=== PATIENT | female | born 1945 | race Caucasian/White ===

== ENCOUNTER → 2017-04-02 | Outpatient (CLI) | payer MEDICARE, OTHER | END | disposition home or self-care (01) | LOC: GMAM 17:59 | PROVIDERS: ATTEND Family Medicine | DX: R22.9 Localized swelling, mass and lump, unspecified (principal); R50.9 Fever, unspecified ==

== ENCOUNTER → 2017-04-09 | Outpatient (CLI) | payer MEDICARE, OTHER ==
--- NOTE | 2017-04-10 13:42 | US ---
EXAM DESCRIPTION: Thyroid: Ultrasound. CLINICAL HISTORY: NODULE. No palpable mass. No prior surgery. No thyroid therapy. COMPARISON: None. TECHNIQUE: Transcutaneous scannin-dimensional and Doppler modes. Largest nodule(s) bilaterally will have point score for TI-RADS. FINDINGS: Right lobe dimensions 5.2 x 1.8 x 1.3 cm. Heterogeneous echoes. 4.3 x 2.2 x 1.9 mm nodule in the mid lobe. Well-defined saldana, spongiform with posterior enhancement, parallel ((wider than tall), and no echogenic foci and hypoechoic. Decreased vascularity in the remainder of the lobe. No echogenic foci. Contour right lobe smooth. Juxta-thyroid masses/fluid: none. Left lobe dimensions 4.9 x 1.6 x 1.1 cm. Heterogeneous echoes. 8.2 x 5.6 x 5.6 mm nodule in the lower pole. Mostly solid, hypoechoic, smooth margins, parallel, with 1.5 mm echogenic foci and posterior shadowing. Not vascular. Decreased Vascularity in the remainder of the lobe. No other echogenic foci. Contour left lobe smooth. Juxta-thyroid masses/fluid: none. Isthmus thickness 1.8 mm. Heterogeneous echoes. No cystic, no solid, and no complex lesions. Decreased vascularity. Contour smooth. IMPRESSION: 1. 8.2 mm mostly solid nodule in the lower left lobe, hypoechoic with single macrocalcification. ACR BI-RADS point total 5. ACR BI-RADS grade TR 4-moderately suspicious. No tissue sampling at this time. Follow-up thyroid ultrasound in one year interval. 2. 4.3 mm hypoechoic nodule in the right lobe with spongiform composition. ACR BI-RADS point total 2. ACR BI-RADS grade TR 2-not suspicious. No tissue sampling or follow-up imaging is recommended. Please see ACR TI RADS recommendations below.* 3. No discrete solid masses, cystic masses, or edema in the surrounding soft tissues. *ACR TI-RADS recommendations: TR5 (greater than or equal to 7 points) - FNA if greater than or equal to 1 cm, follow-up if 0.5 - 0.9 cm every year for 5 years TR4 (4-6 points) - FNA if greater than or equal to 1.5 cm, follow-up if 1 - 1.4 cm in 1, 2, 3 and 5 years TR3 (3 points) - FNA if greater than or equal to 2.5 cm, follow -up if 1.5 - 2.4 cm in 1, 3 and 5 years TR2 (2 points) and TR1 (0 points) - No FNA or follow-up * ACR TI-RADS recommends that no more than two nodules with the highest ACR TI-RADS total point should be biopsied and no more than four nodules should be followed. White Paper of the ACR TI-RADS Committee, JACR, 2017. Electronically signed by: Simon David MD 04/10/2017 1:41 PM [facility]
== END | disposition home or self-care (01) ==
LOC: US 09:00
PROVIDERS: ATTEND Family Medicine
DX: R22.9 Localized swelling, mass and lump, unspecified (principal)

== ENCOUNTER → 2017-04-23 | Outpatient (CLI) | payer MEDICARE, OTHER | LOC: GMAM 17:40 | PROVIDERS: ATTEND Family Medicine | DX: R82.5 Elevated urine levels of drugs, medicaments and biological substances (principal); R82.99 Other abnormal findings in urine ==

== ENCOUNTER → 2017-05-08 | Outpatient (CLI) | payer MEDICARE, OTHER | LOC: GMAM 19:09 | PROVIDERS: ATTEND Family Medicine | DX: D64.9 Anemia, unspecified (principal) ==

== ENCOUNTER → 2017-09-09 | Outpatient (CLI) | payer MEDICARE, OTHER ==
--- NOTE | 2017-09-09 11:56 | CT ---
EXAM DESCRIPTION: Abdomen/Pelvis w/Contrast: Computed Tomography. CLINICAL HISTORY: Malignant neoplasm of cecum COMPARISON: CT scan of the chest on the same visit. CT scan of abdomen and pelvis without contrast 04/12/2012. TECHNIQUE: Spiral-axial scans at 5.0 mm intervals through the abdomen and pelvis, after nonionic IV contrast and water-soluble oral contrast. Coronal and sagittal 2.0 mm reconstructions. Delayed scans, liver through the pelvis. Axial-spiral 5mm. No adverse reactions. Total Exam DLP: 1163.48 mGy-cm. This exam was performed according to our departmental dose-optimization program which includes automated exposure control, adjustment of the mA and/or kV according to patient size and/or use of iterative reconstruction technique; to reduce radiation dose to as low as reasonably achievable (ALARA). FINDINGS: Lung bases and pleura: 5 mm soft tissue nodule abutting the posterior pleura of the right lower lobe without calcification. This segment of the right posterior pleura was not imaged on the prior study on the prior study. No infiltrate in the bases and no pleural effusion. Coronary artery stents and/or calcifications. Liver, Stomach, Spleen, Adrenal Glands: Oral contrast in the stomach. Solid organs are unremarkable. Pancreas, Gallbladder, Ducts: Surgical clips in the gallbladder fossa. No fluid. Common bile duct dilation. Most likely related to postcholecystectomy. Pancreas negative. Kidneys and Ureters: 1.9 cm cystlike mass in the upper pole of the right kidney with Hounsfield density +12-+20. Left breast and ureters are unremarkable.. Mesentery: An oval-shaped mass with questionable peripheral enhancement and central density in approximately +30 is abutting the distal sigmoid and a loop of small bowel with minimal irregularity of the margins and density in the adjacent fat. Dimensions are 2.2 x 2.0 x 1.3 cm. On series 2, images 67-71. 2 similar appearing masses measuring approximately 1 cm in diameter and slightly lobulated borders are at approximately the same level of the pelvis but more in the midline and can be seen between loops of small bowel and sigmoid colon (images 69-71 in the left lateral pelvis. Elongated soft tissue mass with lobulated borders measuring 3 cm in the left pelvis in the region of the left iliac mckenzie chains on images 67 and 68. Larger nodes more inferior also approximately 3 cm in length on images 74-76. This could also represent fluid with Hounsfield density +18. A lobulated, non-enhancing mass which may be continuous with, or contiguous to, the enhancing right lateral rectal wall on images 76-78 measures 2.2 x 1.8 x 2.3 cm with Hounsfield density +29-+32. Aorta: Moderate atherosclerotic calcification with circumferential calcium distal segment and narrowing of the lumen extending into the bilateral proximal common iliac vessels. Small periaortic nodes. No major calcification of the major branch vessels from the aorta. No aneurysm. Small Bowel: Contains oral contrast. No distention or air-fluid levels. Terminal Ileum/Cecum: Normal caliber of the TI which contains oral contrast. Cyst around the sacrum and minimal fascial thickening and fatty stranding. Appendix not seen. No fluid collections. No prominent cecal mass. Abutting the right lower lobe. Colon: Oral contrast in the proximal ascending colon with distention of the transverse colon descending colon, and sigmoid and proximal rectum by fecal material. Moderate redundancy of the sigmoid colon. Pelvic Organs: Moderate fluid in the cul-de-sac. Prostate gland abutting the urinary bladder and seminal vesicles. Spine and Bony Pelvis: Advanced spondylosis L4-5 and trace retrolisthesis with canal and significant foraminal narrowing. Also spondylosis at T12-L1. Decreased bone density. Lumbar levoscoliosis. Degenerative changes with hypertrophy of the bilateral acetabular margins. No sclerotic or destructive bone lesions. Abdominal Wall/Back Soft Tissues: Minimal diastases at the umbilicus but no mariluz hernia involving bowel. IMPRESSION: 1. Soft tissue masses in the pelvis the largest abutting the small bowel and sigmoid colon and most likely associated with the right iliac lymph node chain. This mass is 2.2 cm greatest diameter. These could represent metastases from the primary cecal malignancy. The other masses are in the mid pelvis in the left iliac lymph node chain. No obvious mass in the cecum with postsurgical changes. 2 cm mass may be contiguous or continuous with the right rectal wall, representing a metastasis or a second primary. 2. Probable cyst upper pole right kidney. Correlate with renal ultrasound. 3. Posterior soft tissue pleural-based nodule. Please see chest CT scan report. 4. Moderate fluid in the pelvis cul-de-sac. 5. Spondylosis lumbar spine. Electronically signed by: Simon David MD 09/09/2017 11:55 AM CDT
--- NOTE | 2017-09-09 12:13 | CT ---
EXAM DESCRIPTION: Chest w/Contrast : Computed Tomography. CLINICAL HISTORY: Malignant neoplasm of cecum COMPARISON: CT scan of abdomen and pelvis with IV and oral contrast on this visit. TECHNIQUE: Spiral-axial scans at 5.0 mm intervals through the lungs and thorax with IV contrast. 2.5 mm lung algorithm axial reconstructions. Coronal and sagittal 2.0 Mm reconstructions. No adverse reactions. Total Exam DLP: 254 mGy-cm. This exam was performed according to our departmental dose-optimization program which includes automated exposure control, adjustment of the mA and/or kV according to patient size and/or use of iterative reconstruction technique; to reduce radiation dose to as low as reasonably achievable (ALARA). FINDINGS: 6 mm soft tissue nodule, posterior pleura abutting the superior segment of the right lower lobe and a posterior rib with no calcification or rib destruction, (series 5, image 76). No subpleural parenchymal nodules in the right lower lobe. No parenchymal nodules and other lobes and segments. Possible focal small 3 mm scar posterior left lobe apex (image 23). Bilateral apical pleural thickening with no effusion or pneumothorax. Calcification in the inferior left thyroid lobe; the entire thyroid is not imaged. No enlarged lymph nodes or soft tissue masses in the mediastinum hilum or axilla. Coronary artery stents. Atherosclerotic calcifications in the brachiocephalic vessels and thoracic aorta. Spondylosis at several levels of the thoracic spine. No sclerotic or destructive bone lesions. Mild pectus excavatum of the body of the sternum. IMPRESSION: 1. Single soft tissue nodule appears to be pleural-based abutting the superior segment of the right lower lobe 6 mm diameter. 3 mm focal nodule or scar in the left upper lobe. Consider follow-up chest CT scan with IV contrast in 6 -12 month interval, according to [employer] Best Practice guidelines. Please see below*. 2. Remainder of the lungs unremarkable. No soft tissue mass in the mediastinum or quincy. Atherosclerotic changes in the aorta. Coronary artery stents. * 2017 Fleischner Society Recommendations for Single Solid Lung Nodule Follow-Up based on size (average of long- and short-axis diameters) <6 mm Low-Risk Patient: No routine follow-up <6 mm High-Risk Patient: Optional CT at 12 months 6-8 mm Low-Risk Patient: CT at 6-[address] at 18-24 months 6-8 mm High-Risk Patient: CT at 6-[address] at 18-24 months >8 mm Low-Risk Patient: Consider CT, PET/CT or tissue sampling at 3 months >8 mm High-Risk Patient: Same as for low-risk patient Electronically signed by: Simon David MD 09/09/2017 12:12 PM CDT
== END ==
LOC: CT 08:00
PROVIDERS: ATTEND Internal Medicine Hematology & Oncology
DX: C18.0 Malignant neoplasm of cecum (principal); R91.1 Solitary pulmonary nodule; R18.8 Other ascites; M48.061 Spinal stenosis, lumbar region without neurogenic claudication

== ENCOUNTER → 2017-10-22 | Outpatient (CLI) | payer MEDICARE, OTHER | LOC: GMAM 15:26 | PROVIDERS: ATTEND Family Medicine | DX: C18.9 Malignant neoplasm of colon, unspecified (principal) ==

== ENCOUNTER → 2018-11-02 | Outpatient (CLI) | payer MEDICARE, OTHER | LOC: BFHOS 16:25 | PROVIDERS: ATTEND Family Medicine | DX: R30.0 Dysuria (principal) ==

== ENCOUNTER → 2018-11-03 | Outpatient (CLI) | payer OTHER ==
--- NOTE | 2018-11-03 10:06 | OP ---
DATE OF PROCEDURE: 11/03/18 PREOPERATIVE DIAGNOSIS: 1. Metastatic carcinoma of the colon with malignant ascites. POSTOPERATIVE DIAGNOSIS: 1. Metastatic carcinoma of the colon with malignant ascites. PROCEDURE: 1. Sonographically guided paracentesis. SURGEON: Arturo Schulte MD. RATING EXAMINER: None. ANESTHESIA: Local infiltration of 1% lidocaine. INDICATION: The patient is a 72-year-old female with metastatic carcinoma of the colon with malignant ascites. She is short of breath, quite uncomfortable. She is currently on hospice. She was brought to the Ultrasound Suite today for sonographically guided paracentesis. FINDINGS: The ultrasound films show the needle and then the catheter in the fluid collection in the right lower quadrant. 5700 mL of bloody ascites was obtained. The patient was much more comfortable at the end of the procedure. PROCEDURE: The patient was placed in the supine position with the head of the bed slightly elevated. The abdomen was inspected with the ultrasound probe and the right lower quadrant pool was identified. The abdomen superior to the probe was prepped with chlorhexidine prep. Local infiltration of anesthesia was obtained with 1% lidocaine after drapes were placed. At this point, the 22- gauge needle was introduced into the fluid collection and fluid was obtained under sonographic guidance. A stab wound was then made with an 11 blade and the paracentesis catheter and needle were introduced under sonographic guidance into the pool. Fluid was obtained. The catheter was advanced and the needle withdrawn. It was then connected to the three-way stopcock and a total of 180 mL was withdrawn. It was then connected to the suction canisters and remaining fluid was removed. When it was emptied, the catheter was removed. Pressure was held. A sterile band-aid was applied. Re-inspection revealed a significant decrease in the fluid. The patient tolerated the procedure well and was discharged home. Estimated blood loss less than 5 mL. All sponge, needle and instrument counts were correct. [facility][id number] [facility]
--- NOTE | 2018-11-04 08:20 | US ---
EXAM DESCRIPTION: Paracentesis: Ultrasound CLINICAL HISTORY: MALIGNANT ASCITES COMPARISON: CT abdomen and pelvis 09/09/2017. TECHNIQUE: The procedure was performed by Dr. Schulte. Sterile preparation and technique. Ultrasound-guided placement of catheter into the peritoneal cavity for drainage of ascites. No immediate complications. FINDINGS: Ascites seen in all 4 quadrants of the abdomen. Significant increase in fluid since the prior CT scan. 5700 mL of bloody fluid was removed. IMPRESSION: Successful, ultrasound-guided paracentesis. Electronically signed by: Simon David MD 11/04/2018 8:18 AM CDT
== END ==
LOC: US 11:21
PROVIDERS: ATTEND Surgery
DX: C18.9 Malignant neoplasm of colon, unspecified (principal); C79.9 Secondary malignant neoplasm of unspecified site; R18.0 Malignant ascites

== ENCOUNTER 2018-11-11 17:33 | Inpatient (IN) | payer OTHER ==
--- NOTE | 2018-11-11 17:35 | HP ---
SUPERVISING PHYSICIAN: Wayne Cheung MD CHIEF COMPLAINT: Endstage colon cancer, uncontrollable nausea and vomiting. HISTORY OF PRESENT ILLNESS: Ms. 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 She is on home hospice with [facility]. She had been doing okay, but in the last several days, has been unable to hold any oral medications for nausea and vomiting and had persistent nausea and was unable to get any comfort. Dr. Cheung requested the patient be admitted for inpatient hospice to allow for IV medications to control her nausea. The patient has had recently a therapeutic paracentesis on 11/03/18 for malignant ascites with approximately 5700 mL removed. She does have a history of being diagnosed with colon cancer within the last year, but failed to respond to chemotherapy treatments and has now gone onto hospice care. She has been doing fairly well up until this last couple of days when she was unable to hold any antiemetics due to her nausea and vomiting. The patient is now admitted to inpatient hospice under the direction of [facility]. PAST MEDICAL HISTORY: 1. 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 2. Malignant ascites. 3. Anemia secondary to #1. 4. Gastroesophageal reflux disease. 5. Atherosclerotic heart disease. 6. Hypertension. PAST SURGICAL HISTORY: 1. Hysterectomy. 2. Partial colectomy for colon cancer with recurrence. 3. Lumbar fusion. 4. Left shoulder surgery. 5. Cervical spine fusion. 6. Cholecystectomy. HOME MEDICATIONS: Please see hospice medical administration record. ALLERGIES: NO KNOWN DRUG ALLERGIES. FAMILY HISTORY: Noncontributory. SOCIAL HISTORY: The patient is and lives in [place]. She rarely drinks alcohol. She did smoke cigarettes, but quit in 2009. She is currently on hospice under the care of [facility]. REVIEW OF SYSTEMS: CONSTITUTIONAL: Positive for general malaise, fatigue, weight loss related to malignancy. Denies any fevers or chills. HEENT: Negative for headaches, sore throats, earaches, nasal congestion, vision changes. RESPIRATORY: Denies shortness of breath, wheezing or coughing. CARDIOVASCULAR: Negative for chest pain, palpitations or tachycardia. GASTROINTESTINAL: As noted in history of present illness, persistent nausea and vomiting. No reported abdominal pains. History of colon cancer on hospice. GENITOURINARY: Negative for dysuria, hematuria, polyuria. NEUROLOGIC: Denies seizures, headaches, vision changes, syncopal episodes. PHYSICAL EXAMINATION: VITAL SIGNS: Temperature 98.5. Pulse 88. Blood pressure 125/62. Respirations 18. Oxygen saturation 91% on room air. GENERAL: The patient is very emaciated, but appears to be comfortable and in no acute distress. She just received IV Phenergan and is alert. HEENT: Tympanic membranes clear bilaterally. Oropharynx is pink. Mucous membranes dry with no lesions. NECK: Supple, nontender with full range of motion. No jugular venous distention noted. RESPIRATORY: Lungs clear. There is a Rzvwvt-[id number] over the right chest wall. No rhonchi, wheezes or rales are heard. CARDIOVASCULAR: Regular rate and rhythm without any appreciable murmurs, gallops, or rubs. ABDOMEN: Soft, nontender. Positive bowel sounds. EXTREMITIES: No edema. NEUROLOGIC: The patient is alert and oriented times three. LABORATORY: No laboratory. RADIOLOGY: No radiographic studies. ASSESSMENT: 1. Terminal colon cancer with malignancy to the retroperitoneum and peritoneum having failed to respond to chemotherapy, currently on care and comfort measures with hospice through [facility]. 2. Intractable nausea and vomiting, unable to hold any oral medications or receive any significant comfort, requiring admission for more aggressive management. 3. 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 4. History of malignant ascites with multiple therapeutic paracenteses. 5. Gastroesophageal reflux disease without any noted esophagitis. 6. History of coronary artery disease with previous stent placement. 7. Hypertension. PLAN: Ms. Nash is going to be admitted to inpatient hospice under the direction of [facility]. Hospice nurse has written orders. I have visited with the multiple family members present, discussed plan of care to get the patient comfortable and able to control her on oral medications after which time the patient will be discharged home. We will anticipate length of stay to be anywhere from two to three days. She will remain on hospice care. We will continue to follow the patient as needed. Until she can transition to outpatient management, we are available as needed for consultation or other needs per family. [facility][id number] [facility]
[2018-11-11] MEDS ORDERED: SODIUM CHLORIDE 0.9% 50ML 50 ML ONE (18:45)
[2018-11-11] MEDS ORDERED: PROMETHAZINE HCL INJ 25 MG/ML VIAL ONE (18:45)
[2018-11-11] MEDS: PROMETHAZINE HCL INJ 25 MG in SODIUM CHLORIDE 0.9% 50ML 50 ML IVPB PRN (18:52)
[2018-11-11] MEDS: MORPHINE SULFATE INJ 10 MG/ML VIAL IV PRN ×3 (18:52→23:05)
[2018-11-11] MEDS: IV SET AND CAP CHANGE INJ INJ SCH (20:41)
[2018-11-12] MEDS: MORPHINE SULFATE INJ 10 MG/ML VIAL IV PRN ×6 (01:09→20:13)
[2018-11-12] MEDS: MORPHINE ER 30 MG TAB PO SCH (16:23)
[2018-11-12] MEDS ORDERED: PROMETHAZINE HCL INJ 25 MG/ML VIAL ONE (19:37)
[2018-11-12] MEDS ORDERED: SODIUM CHLORIDE 0.9% 50ML 50 ML ONE (19:37)
[2018-11-12] MEDS: PROMETHAZINE HCL INJ 25 MG in SODIUM CHLORIDE 0.9% 50ML 50 ML IVPB PRN (19:39)
--- NOTE | 2018-11-12 21:38 | PN ---
DATE: 11/12/18 SUPERVISING PHYSICIAN: Wayne Cheung M.D. SUBJECTIVE: The patient did well with IV antiemetics last night. She was actually able to eat a little bit this morning but still continues to have some nausea. I discussed with family she would probably be able to go home tomorrow or Friday if she continues to improve well enough to take oral medications. OBJECTIVE: VITAL SIGNS: Show to be stable with heart rate 86, temperature 98.6, blood pressure 145/68 showing 94% SpO2 with 18 respirations. GENERAL: The patient is very emaciated, but appears to be comfortable and in no acute distress. She just received IV Phenergan and is alert. HEENT: Tympanic membranes clear bilaterally. Oropharynx is pink. Mucous membranes dry with no lesions. NECK: Supple, nontender with full range of motion. No jugular venous distention noted. RESPIRATORY: Lungs clear. There is a Jrcffy-C-Xevn over the right chest wall. No rhonchi, wheezes or rales are heard. CARDIOVASCULAR: Regular rate and rhythm without any appreciable murmurs, gallops, or rubs. ABDOMEN: Soft, nontender. Positive bowel sounds. EXTREMITIES: No edema. NEUROLOGIC: The patient is alert and oriented times three. ASSESSMENT: 1. Terminal colon cancer with malignancy to the retroperitoneum and peritoneum having failed to respond to chemotherapy, currently on care and comfort measures with hospice through [facility]. 2. Intractable nausea and vomiting, unable to hold any oral medications or receive any significant comfort, requiring admission for more aggressive management with the patient showing a little bit of improvement and able to take some oral intake. 3. 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 4. History of malignant ascites with multiple therapeutic paracenteses. 5. Gastroesophageal reflux disease without any noted esophagitis. 6. History of coronary artery disease with previous stent placement. 7. Hypertension. PLAN: Will continue to follow the patient under the direction of hospice care. I anticipate hopefully being able to discharge back home tomorrow or Friday. Will continue to provide support as needed. Until then will continue to monitor and treat as needed. [facility][id number] [facility]
[2018-11-13] MEDS: MORPHINE ER 30 MG TAB PO SCH ×3 (00:22→16:53)
[2018-11-13] MEDS: MORPHINE SULFATE INJ 10 MG/ML VIAL IV PRN ×2 (02:20→05:50)
[2018-11-13] MEDS: ONDANSETRON INJ 4 MG/2 ML VIAL IV PRN (07:34)
[2018-11-13] MEDS ORDERED: PROMETHAZINE HCL 25 MG TAB PO PRN (10:42)
[2018-11-13] MEDS ORDERED: ONDANSETRON 4 MG TAB PO PRN (10:43)
[2018-11-13] MEDS: MORPHINE *IMMEDIATE RELEASE* 15 MG TAB PO PRN ×2 (11:59→19:18)
[2018-11-13] MEDS: LORazepam 1 MG TAB PO PRN (17:43)
[2018-11-13] MEDS: PROMETHAZINE HCL 25 MG TAB PO PRN (19:18)
--- NOTE | 2018-11-13 20:54 | PN ---
DATE: 11/13/18 SUPERVISING PHYSICIAN: Wayne Cheung M.D. SUBJECTIVE: The patient seems to be doing better today. She is actually able to eat. The plan at this point is we are going to try to transition her to oral antiemetics and pain management with anticipation of hopefully discharging tomorrow. OBJECTIVE: VITAL SIGNS: Temperature 98.2, pulse 90, blood pressure 111/64, respirations 16, satting 94% on room air. GENERAL: The patient is very emaciated, but appears to be comfortable and in no acute distress. She just received IV Phenergan and is alert. HEENT: Tympanic membranes clear bilaterally. Oropharynx is pink. Mucous membranes dry with no lesions. NECK: Supple, nontender with full range of motion. No jugular venous distention noted. RESPIRATORY: Lungs clear. There is a Ruhjjn-J-Ogts over the right chest wall. No rhonchi, wheezes or rales are heard. CARDIOVASCULAR: Regular rate and rhythm without any appreciable murmurs, gallops, or rubs. ABDOMEN: Soft, nontender. Positive bowel sounds. EXTREMITIES: No edema. NEUROLOGIC: The patient is alert and oriented times three. ASSESSMENT: 1. Terminal colon cancer with malignancy to the retroperitoneum and peritoneum having failed to respond to chemotherapy, currently on care and comfort measures with hospice through [facility]. 2. Intractable nausea and vomiting, unable to hold any oral medications or receive any significant comfort, requiring admission for more aggressive management with the patient showing a little bit of improvement and able to take some oral intake. 3. 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 4. History of malignant ascites with multiple therapeutic paracenteses. 5. Gastroesophageal reflux disease without any noted esophagitis. 6. History of coronary artery disease with previous stent placement. 7. Hypertension. PLAN: Today we are trying to transition the patient to oral antiemetics and pain management. The plan will be to discharge her back home to hospice care with [facility] as previous. Until she can transition back home will continue to monitor and treat as needed. #[id number] [facility]
[2018-11-14] MEDS: MORPHINE ER 30 MG TAB PO SCH ×4 (00:27→23:56)
[2018-11-14] MEDS: PROMETHAZINE HCL 25 MG TAB PO PRN ×2 (05:13→14:17)
[2018-11-14] MEDS: MORPHINE *IMMEDIATE RELEASE* 15 MG TAB PO PRN ×2 (05:13→14:17)
[2018-11-14] MEDS ORDERED: PROMETHAZINE HCL INJ 25 MG/ML VIAL ONE ×2 (07:11→18:25)
[2018-11-14] MEDS ORDERED: SODIUM CHLORIDE 0.9% 50ML 50 ML ONE ×2 (07:11→18:25)
[2018-11-14] MEDS: PROMETHAZINE HCL INJ 25 MG in SODIUM CHLORIDE 0.9% 50ML 50 ML IVPB PRN ×2 (07:15→18:29)
[2018-11-14] MEDS: LORazepam 1 MG TAB PO PRN (11:33)
[2018-11-14] MEDS: MORPHINE SULFATE INJ 10 MG/ML VIAL IV PRN ×2 (14:58→18:29)
[2018-11-14] MEDS: ONDANSETRON INJ 4 MG/2 ML VIAL IV PRN (15:02)
[2018-11-14] MEDS: IV SET AND CAP CHANGE INJ INJ SCH (17:54)
[2018-11-15] MEDS ORDERED: PROMETHAZINE HCL INJ 25 MG/ML VIAL ONE (01:29)
[2018-11-15] MEDS ORDERED: SODIUM CHLORIDE 0.9% 50ML 50 ML ONE (01:30)
[2018-11-15] MEDS: PROMETHAZINE HCL INJ 25 MG in SODIUM CHLORIDE 0.9% 50ML 50 ML IVPB PRN (01:34)
[2018-11-15] MEDS: MORPHINE SULFATE INJ 10 MG/ML VIAL IV PRN ×2 (01:35→12:30)
[2018-11-15] MEDS: LORazepam 1 MG TAB PO PRN (04:35)
[2018-11-15] MEDS: ONDANSETRON INJ 4 MG/2 ML VIAL IV PRN (06:20)
[2018-11-15] MEDS: MORPHINE ER 30 MG TAB PO SCH ×3 (07:59→23:57)
[2018-11-15] MEDS: MORPHINE *IMMEDIATE RELEASE* 15 MG TAB PO PRN (20:19)
[2018-11-16] MEDS: MORPHINE *IMMEDIATE RELEASE* 15 MG TAB PO PRN (03:14)
[2018-11-16] MEDS: MORPHINE SULFATE INJ 10 MG/ML VIAL IV PRN ×6 (03:20→21:34)
[2018-11-16] MEDS ORDERED: SODIUM CHLORIDE 0.9% 50ML 50 ML ONE (06:58)
[2018-11-16] MEDS ORDERED: PROMETHAZINE HCL INJ 25 MG/ML VIAL ONE (06:58)
[2018-11-16] MEDS: PROMETHAZINE HCL INJ 25 MG in SODIUM CHLORIDE 0.9% 50ML 50 ML IVPB PRN (07:08)
[2018-11-16] MEDS: MORPHINE ER 30 MG TAB PO SCH (08:18)
[2018-11-16] MEDS: ONDANSETRON INJ 4 MG/2 ML VIAL IV PRN (10:07)
[2018-11-16] MEDS: SODIUM CHLORIDE 0.9% (FLUSH) 10 ML SYG IV PRN (20:36)
[2018-11-17] MEDS: SODIUM CHLORIDE 0.9% (FLUSH) 10 ML SYG IV PRN ×6 (00:01→22:24)
[2018-11-17] MEDS: MORPHINE SULFATE INJ 10 MG/ML VIAL IV PRN ×8 (02:40→22:23)
[2018-11-17] MEDS ORDERED: PROMETHAZINE HCL INJ 25 MG/ML VIAL ONE (10:17)
[2018-11-17] MEDS ORDERED: SODIUM CHLORIDE 0.9% 50ML 50 ML ONE (10:18)
[2018-11-17] MEDS: PROMETHAZINE HCL INJ 25 MG in SODIUM CHLORIDE 0.9% 50ML 50 ML IVPB PRN (10:22)
[2018-11-17] MEDS: IV SET AND CAP CHANGE INJ INJ SCH (17:31)
[2018-11-18] MEDS: SODIUM CHLORIDE 0.9% (FLUSH) 10 ML SYG IV PRN ×4 (00:08→08:13)
[2018-11-18] MEDS: MORPHINE SULFATE INJ 10 MG/ML VIAL IV PRN ×8 (00:08→22:03)
--- NOTE | 2018-11-18 17:07 | PN ---
DATE: 11/18/18 SUPERVISING PHYSICIAN: Kishan Jay M.D. SUBJECTIVE: The patient continues to have nausea and vomiting and needing IV pain management. I did talk with her who is at the bedside. The patient is not eating or drinking and has been without any significant oral intake for well over 20 something days. OBJECTIVE: VITAL SIGNS: Temperature 98, pulse 98, blood 118/68, respirations 18, satting 95% on room air. GENERAL: The patient appears to be very comfortable. She is minimally responsive to verbal stimulus. She is still getting IV pain management. She is very emaciated in appearance. CHEST: Lung sounds are clear to auscultation. HEART: Regular rate and rhythm. ABDOMEN: Soft, non-tender. Positive bowel sounds. NEUROLOGIC: The patient is minimally responsive unless verbally or physically stimulated at which time she is alert. ASSESSMENT: 1. Terminal colon cancer with malignancy to the retroperitoneum and peritoneum having failed to respond to chemotherapy, currently on care and comfort measures with hospice through [facility]. 2. Intractable nausea and vomiting still unable to hold any oral medications down requiring continued parenteral management. 3. 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 4. History of malignant ascites with multiple therapeutic paracenteses. 5. Gastroesophageal reflux disease without any noted esophagitis. 6. History of coronary artery disease with previous stent placement. 7. Hypertension. PLAN: Will continue to follow the patient as she continues to be on hospice. At some point will try to transition the patient back to oral medications but will continue to follow the patient as needed under the direction of hospice care. Until she can transition back to home hospice will continue to monitor and treat as needed. [facility][id number] [facility]
[2018-11-19] MEDS: MORPHINE SULFATE INJ 10 MG/ML VIAL IV PRN ×2 (03:40→11:52)
[2018-11-19] MEDS ORDERED: MORPHINE PCA 1 MG/ML 100 ML BAG IVPB SCH (15:00)
[2018-11-19] MEDS ORDERED: SODIUM CHLORIDE 0.9% 250ML 250 ML ONE (15:59)
[2018-11-19] MEDS: SODIUM CHLORIDE 0.9% 250ML 250 ML IVS PRN (17:09)
[2018-11-19 22:04] VITALS: BP 115/74; TEMP 98.4
[2018-11-20] MEDS: SODIUM CHLORIDE 0.9% 250ML 250 ML IVS PRN ×2 (02:20→16:15)
[2018-11-20] MEDS: IV SET AND CAP CHANGE INJ INJ SCH (18:15)
[2018-11-21 00:11] VITALS: O2SAT 99
[2018-11-21] MEDS: SODIUM CHLORIDE 0.9% 250ML 250 ML IVS PRN ×2 (04:05→17:40)
[2018-11-22] MEDS: SODIUM CHLORIDE 0.9% 250ML 250 ML IVS PRN (05:45)
--- NOTE | 2018-12-01 14:13 | DS ---
SUPERVISING PHYSICIAN: Kishan Jay MD ADMISSION DIAGNOSIS: 1. 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 2. Intractable nausea and vomiting, unable to hold any oral medications or receive any significant comfort, requiring admission for more aggressive management. 3. 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 4. History of malignant ascites with multiple therapeutic paracenteses. 5. Gastroesophageal reflux disease without any noted esophagitis. 6. History of coronary artery disease with previous stent placement. 7. Hypertension. DISCHARGE DIAGNOSIS: 1. Cardiopulmonary arrest secondary to complications from aggressive terminal colon cancer and malignancy to the retroperitoneum and peritoneum having failed to respond to chemotherapy. REASON FOR HOSPITALIZATION: Ms. 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 She is on home hospice with [facility]. She had been doing okay, but in the last several days, has been unable to hold any oral medications for nausea and vomiting and had persistent nausea and was unable to get any comfort. Dr. Cheung requested the patient be admitted for inpatient hospice to allow for IV medications to control her nausea. The patient has had recently a therapeutic paracentesis on 11/03/18 for malignant ascites with approximately 5700 mL removed. She does have a history of being diagnosed with colon cancer within the last year, but failed to respond to chemotherapy treatments and has now gone onto hospice care. She has been doing fairly well up until this last couple of days when she was unable to hold any antiemetics due to her nausea and vomiting. The patient is now admitted to inpatient hospice under the direction of [facility]. LABORATORY: None. RADIOLOGY: None. HOSPITAL COURSE: She was admitted to [facility] and had care and comfort measures. Ultimately, she was unable to progress to any oral medications or any diet and was unable to return home. She ultimately in the hospital. PLAN: The patient on 11/22/18 with not unexpected as noted above. DISPOSITION: The patient's body was released to home as directed by family members. #[id number] MTDD
== END 2018-11-22 18:08 | disposition expired | DRG 392 ==
LOC: MS 17:33 → UNDOADMIN 17:33 → MS 11-12 15:18 → UNDOADMIN 11-13 02:35 → MS 11-13 02:35
PROVIDERS: ADMIT Nurse Practitioner Family; ATTEND Nurse Practitioner Family
DX: R11.2 Nausea with vomiting, unspecified (principal); C18.9 Malignant neoplasm of colon, unspecified; C78.6 Secondary malignant neoplasm of retroperitoneum and peritoneum; I46.8 Cardiac arrest due to other underlying condition; D63.0 Anemia in neoplastic disease; K21.9 Gastro-esophageal reflux disease without esophagitis; I25.10 Atherosclerotic heart disease of native coronary artery without angina pectoris; I10 Essential (primary) hypertension; Z66 Do not resuscitate; Z90.49 Acquired absence of other specified parts of digestive tract; Z87.891 Personal history of nicotine dependence; Z95.828 Presence of other vascular implants and grafts; Z92.21 Personal history of antineoplastic chemotherapy